=== PATIENT | male | born 1980 | race Caucasian/White ===

== ENCOUNTER 2021-05-10 03:32 | Emergency (ER) | payer OTHER ==
[~2021-05-10] VITALS: Ht 177.8 cm; Wt 81.0 kg
--- NOTE | 2021-05-10 03:52 | PHYS DOC ---
Adult General Chief Complaint Chief Complaint: HIP PAIN HPI HPI Patient is an otherwise healthy 41-year-old male who presents with a chief complaint of pain in his hip which started acutely a few hours ago, 7 out of 10, sharp in nature with no radiation. States he has never had anything like this before. Denies any recent traumas, illnesses, fevers, chest pain, shortness of breath, abdominal pain, nausea, vomiting, dysuria, hematuria, blood in the stool or diarrhea. Denies any penile or scrotal pain, swelling or discharge. Denies any history of STIs. States he is able to walk without issue. States he took hydrocodone about an hour before coming which gave minimal relief. (CATALINA MUSTAFA MD) Review of Systems Review of Systems Review of systems otherwise unremarkable except noted in HPI (CATALINA MUSTAFA MD) Physical Exam Physical Exam Constitutional: Well developed, well nourished, no acute distress, non-toxic appearance. [] HENT: Normocephalic, atraumatic, bilateral external ears normal, oropharynx moist, no oral exudates, nose normal. [] Eyes: conjunctiva normal, no discharge. [] Neck: Normal range of motion, no tenderness, supple, no stridor. [] Cardiovascular:Heart rate regular rhythm, no murmur [] Lungs & Thorax: Bilateral breath sounds clear to auscultation [] Abdomen: soft, no tenderness, no masses, no pulsatile masses, tenderness just lateral to the pubic symphysis with no obvious bruising, swelling or deformities. Neurovascular exam intact.. [] Skin: Warm, dry, no erythema, no rash. [] Extremities: No tenderness, no cyanosis, no clubbing, ROM intact, no edema. [] Neurologic: Alert and oriented X 3, no focal deficits noted. [] Psychologic: Affect normal, judgement normal, mood normal. [] (CATALINA MUSTAFA MD) EKG EKG [] (CATALINA MUSTAFA MD) Radiology/Procedures Radiology/Procedures [] (CATALINA MUSTAFA MD) Heart Score C/O Chest Pain: No Risk Factors: Risk Factors: DM, Current or recent (<one month) smoker, HTN, HLP, family history of CAD, obesity. Risk Scores: Risk Factors: DM, Current or recent (<one month) smoker, HTN, HLP, family history of CAD, obesity. (CATALINA MUSTAFA MD) Course & Med Decision Making Course & Med Decision Making Patient is a 41-year-old male who presents with a chief complaint of left hip pain Vital signs not concerning. Physical exam noted above. Patient placed on the monitor with IV access established. Given morphine for pain. CT notable for large left hip joint effusion, concerning for septic joint. Laboratory analysis pending. Discussed all findings with family and recommended transfer to [facility] for either orthopedic or IR intervention, with aspiration and analysis of fluid and probable antibiotics. Family grateful, verbalized understanding and agreed with plan of transfer. Patient care transferred to day team for lab analysis and disposition. (CATALINA MUSTAFA MD) Course & Med Decision Making I spoke with the orthopedic surgeon, Dr. Chapman and he would like the [facility]. He believes it is likely that they w ill do a joint washout in the OR. They may or may not do a joint tap before this. He has requested that no antibiotics be given unless the patient develops fever. I spoke with Dr. Ernandez, hospitalist and he has accepted the patient for transfer. We are waiting for a bed at [facility]. If this will delayed more than 5 hours we may transfer the patient to [facility] directly per Dr. Chapman's request. I have made Dr. Ernandez aware of this as well. The patient will go by ambulance. (WILBER CASTRO DO) Dragon Disclaimer Dragon Disclaimer This electronic medical record was generated, in whole or in part, using a voice recognition dictation system. (CATALINA MUSTAFA MD) Departure Departure: Impression: Primary Impression: Effusion of hip joint, left Disposition: 02 [facility] Condition: STABLE Referrals: PCP,NO (PCP) POORNIMA COBB MD, ADAM W MD May 10, 2021 03:52 WILBER CASTRO DO May 10, 2021 07:33
[2021-05-10] MEDS: MORPHINE SULFATE 4 MG/ML DISP.SYRIN. IV ONE ×3 (04:09→12:27)
[2021-05-10] MEDS ORDERED: CONTRAST GIVEN. MC PRN (04:15)
[2021-05-10] MEDS: IOHEXOL 300 MG/ML 75 ML VIAL. IV ONE (04:26)
[2021-05-10] MEDS: KETOROLAC 15 MG/ML VIAL. IVP ONE (04:52)
[2021-05-10] MEDS: ACETAMINOPHEN 500 MG TABLET PO ONE (04:52)
--- NOTE | 2021-05-10 04:57 | RAD ---
EXAM: CT pelvis with IV contrast DATE: 05/10/2021 3:53 AM COMPARISON: No prior INDICATION: Reason: OMNI 300,75ML IV.Left sided groin pain lateral to pubic symph / Spl. Instruction s: / History: TECHNIQUE: CT of the pelvis was performed following the administration of IV contrast. Axial, coronal and sagittal reformatted images were generated. PQRS compliance statement - One or more of the following individualized dose reduction techniques wer e utilized for this study: 1. Automated exposure control 2. Adjustment of the mA and/or kV according to patient size 3. Use of iterative reconstruction technique FINDINGS: There is a large left hip joint effusion. Moderate colonic stool content. No pelvic mass, lymphadenopathy or ascites. No aggressive osseous lesion is seen. IMPRESSION: 1. There is a large left hip joint effusion, uncertain clinical significance. This can be correlated with lab values, if there is clinical concern for septic joint aspiration can be performed. Electronically signed by: Farrukh Jimenes MD (05/10/2021 4:54 AM) [place]
[2021-05-10] MEDS: IV RINGERS SOLUTION,LACTATED 1,000 ML IV ONE (05:25)
[2021-05-10 05:48] LABS: BASO % 0 % (0-3); EOS % 0 % (0-3); HEMATOCRIT 42.5 % (39.0-53.0); HEMOGLOBIN 14.3 g/dL (13.0-17.5); LYMPH # 1.4 x10^3/uL (1.0-4.8); LYMPH % 9 % (24-48); MEAN CORPUSCULAR HEMOGLOBIN 31 pg (25-35); MEAN CORPUSCULAR HGB CONC 34 g/dL (31-37); MEAN CORPUSCULAR VOLUME 93 fL (79-100); MONO # 1.5 x10^3/uL (0.0-1.1); MONO % 10 % (0-9); NEUT # 12.4 x10^3uL (1.8-7.7); NEUT % 81 % (31-73); PLATELET COUNT 220 x10^3/uL (140-400); RED BLOOD COUNT 4.57 x10^6/uL (4.30-5.70); RED CELL DISTRIBUTION WIDTH 13.5 % (11.5-14.5); WHITE BLOOD COUNT 15.4 x10^3/uL (4.0-11.0)
[2021-05-10 05:52] LABS: CALCIUM 8.5 mg/dL (8.5-10.1); GFR 82.3; POTASSIUM 4.1 mmol/L (3.5-5.1)
[2021-05-10 06:03] LABS: % BANDS 6 % (0-9); % LYMPHS 14 % (24-48); % MONOS 4 % (0-10); % SEGS 76 % (35-66); PLT ESTIMATE ADEQUATE (ADEQUATE)
[2021-05-10 06:44] LABS: SEDIMENTATION RATE 3 (0-15)
[2021-05-10 13:38] VITALS: BP 132/73
== END 2021-05-10 13:56 | disposition short-term general hospital (02) ==
LOC: ER 03:32
DX: M25.452 Effusion, left hip (principal); Z20.822 Contact with and (suspected) exposure to COVID-19
CPT/HCPCS: 36415; 72193; 80048; 83605; 84550; 85007; 85025; 85651; 86140; 87426; 96361; 96374; 96375; 96376; 99285; C9803; J1885; J2270; J7120; Q9967; U0003

== ENCOUNTER → 2021-07-15 | Outpatient (CLI) | payer OTHER, MEDICAID ==
--- NOTE | 2021-07-16 13:03 | RAD ---
XR HIP (WITH OR WITHOUT PELVIS)LEFT 1 VIEW History: Reason: LEFT HIP PAIN, SURGERY ON LEFT HIP X 2 MO AGO (CLEANED OUT HIP) / Spl. Instructions: / History: Technique: AP view the pelvis and additional view of the left hip Comparison: None. Findings: No dislocation. No acute fracture. Impression: 1. No acute osseous abnormality. Electronically signed by: Onofre Acuña DO (07/16/2021 1:01 PM) [id number]
== END ==
LOC: RAD 15:35
PROVIDERS: ATTEND Physician Assistant
DX: Z98.890 Other specified postprocedural states (principal)
CPT/HCPCS: 73501